=== PATIENT | male | born 1965 | race Two or more races ===

== ENCOUNTER 2020-08-29 00:10 | Emergency (ER) | payer MEDICARE, MEDICAID ==
[~2020-08-29] VITALS: Ht 175.3 cm; Wt 89.0 kg
[~2020-08-29 00:10] MED LIST: ACID1TAB7 PO; MELA5TAB14 PO; SERT50TA28 PO; Sulfameth./Trimethoprim Ds PO
[2020-08-29 00:48] LABS: BASOPHILS % (AUTO) 1 % (0-1); EOSINOPHILS % (AUTO) 1 % (1-7); LYMPHOCYTES % (AUTO) 41 % (22-44); MEAN CORPUSCULAR HEMOGLOBIN 31.8 pg (27.5-34.5); MEAN CORPUSCULAR HGB CONC 34.6 g/dL (33.2-36.2); MEAN PLATELET VOLUME 8.6 fL (7.4-10.4); MONOCYTES % (AUTO) 7 % (2-9); NEUTROPHILS % (AUTO) 50 % (42-75); PLATELET COUNT 259 x10^3/uL (130-400); RED CELL DISTRIBUTION WIDTH 12.9 % (9.4-14.8)
[2020-08-29 00:50] LABS: MD NO
[2020-08-29 01:02] LABS: ALBUMIN 3.9 g/dL (3.4-5.0); ANION GAP 6 mmol/L (5-15); CALCIUM 8.7 mg/dL (8.5-10.1); CHLORIDE 111 mmol/L (98-107)
[2020-08-29 01:03] LABS: SALICYLATE LEVEL < 1.7 mg/dL (2.8-20.0)
[2020-08-29 01:04] LABS: ALANINE AMINOTRANSFERASE 61 U/L (12-78); ALKALINE PHOSPHATASE 93 U/L (45-117); BILIRUBIN,TOTAL 0.5 mg/dL (0.2-1.0)
--- NOTE | 2020-08-29 02:05 | NUR ---
PATIENT TO ROOM FROM LOBBY
--- NOTE | 2020-08-29 03:00 | NUR ---
TO BEDSIDE TO MARY PT. PT SAYS HE'S DEPRESSED. TO ASSES.
--- NOTE | 2020-08-29 03:15 | NUR ---
PT TRYING TO GIVE URINE SAMPLE. URINAL AND PRIVACY PROVIDED TO PT. TELEPSYCH PLACED IN ROOM AND PT ADVISED ON THE DOCTOR COMING ON THE SCREEN AND TO TALK TO HIM. PT V/U.
[2020-08-29 04:28] LABS: MICROSCOPIC NOT IND
--- NOTE | 2020-08-29 04:40 | NUR ---
PT PROVIDED URINE SAMPLE AND SENT TO LAB. TELEPSYCH TO ROOM, IT WAS ORDERED BY . TELEPSYCH EXPLAINED TO PT AND HE V/U. RESTING COMFORTABLY.
[2020-08-29 05:54] LABS: AMPHETAMINE SCREEN, URINE Positive (Negative); BARBITURATE SCREEN, URINE Negative (Negative); BENZODIAZEPINE SCREEN, URINE Negative (Negative); CANNABINOID SCREEN, URINE Positive (Negative); COCAINE SCREEN, URINE Negative (Negative); METHADONE SCREEN, URINE Negative (Negative); OPIATE SCREEN, URINE Negative (Negative)
--- NOTE | 2020-08-29 06:30 | NUR ---
PT RESTING COMFORTABLY AND IN NO ACUTE DISTRESS. WARM BLANKETS PROVIDED FOR PT. SIDERAILS UP X2 AND CALL LIGHT WITHIN REACH.
--- NOTE | 2020-08-29 06:57 | NUR ---
REPORT RECEIVED FROM TIGIST HALL
[2020-08-29 07:16] VITALS: BP 148/78
--- NOTE | 2020-08-29 07:21 | NUR ---
PT RESTING IN BED, A&O, RESPS EVEN AND UNLABORED, VSS, NADN. AWAITING TELEPSYCH CONSULT, NO COMPLAINTS AT THIS TIME.
--- NOTE | 2020-08-29 07:28 | NUR ---
REPORT GIVEN TO TELE PSYCHIATRIST PRIOR TO CONSULT.
== END 2020-08-29 08:38 | disposition home or self-care (01) ==
LOC: ED 07:58
DX: F32.0 Major depressive disorder, single episode, mild (principal); F15.10 Other stimulant abuse, uncomplicated; Z72.9 Problem related to lifestyle, unspecified
CPT/HCPCS: 36415; 80053; 80299; 80307; 80320; 80329; 81003; 85025; 99283; G0480